=== PATIENT | female | born 1970 | race Caucasian/White ===

== ENCOUNTER 2018-10-06 10:40 | Day surgery (SDC) | payer OTHER ==
[~2018-10-06 10:40] MED LIST: BUPIV. HCL 0.25% (2.5MG/ML)/EPI. (1:200,000) PF 30 ML VIAL IJ ONE; DEXAMETHASONE SODIUM PHOSPHATE 10 MG/ML VIAL ONE; ENOXAPARIN SODIUM 40 MG/0.4 ML DISP.SYRIN SQ ONE; FAMOTIDINE 20 MG/2 ML VIAL IV ONE; LACTATED RINGERS 1,000 ML IV.SOLN IV ONE; LEVALBUTEROL NEB 1.25 MG/3 ML VIAL.NEB NEB ONE; LIDOCAINE HCL 1% PF 300MG/30ML VIAL ONE; LIDOCAINE HCL 2% PF 100MG/5ML VIAL IJ ONE; MIDAZOLAM HCL 2 MG/2 ML VIAL ONE; ONDANSETRON HCL/PF 4 MG/ 2ML VIAL ONE; PROPOFOL 200 MG/20 ML VIAL IV ONE; ROCURONIUM BROMIDE 10 MG/ML 5ML VIAL ONE; SCOPOLAMINE HYDROBROMIDE 1.5MG/72HR PATCH TD ONE; SEVOFLURANE 250 ML LIQUID IH ONE; SODIUM CHLORIDE IRRIG SOLUTION 3,000 ML IRRIG.SOLN IR ONE; SUGAMMADEX SODIUM 200 MG/2 ML VIAL IV ONE; ceFAZolin SODIUM 1 GM VIAL ONE
--- NOTE | 2018-10-06 14:34 | Operative Note ---
PREOPERATIVE DIAGNOSIS: 1. Morbid obesity. 2. Gastroesophageal reflux disease. 3. Hyperlipidemia. 4. Hypertension. POSTOPERATIVE DIAGNOSIS: 1. Morbid obesity. 2. Gastroesophageal reflux disease. 3. Hyperlipidemia. 4. Hypertension. PROCEDURES PERFORMED: 1. Laparoscopic vertical sleeve gastrectomy. 2. Upper gastrointestinal endoscopy. SURGEON: Tom Wolf M.D. INDICATIONS FOR PROCEDURE: Ms. Manda Green is a 47-year-old female who presented with features of morbid obesity. She was noted to have a weight of 308 pounds with a BMI of 56.3 with the above-listed comorbidities. The patient was advised laparoscopic vertical sleeve gastrectomy and possible hiatal hernia repair. The patient showed understanding and agreed to proceed. DESCRIPTION OF PROCEDURE: After explaining to the patient in detail and informed consent was obtained, the patient was identified in the preoperative holding area. The patient was transferred to the operating room and was placed in supine position. Sequential compressive devices were placed for DVT prophylaxis. Preoperative antibiotics were given. After induction of anesthesia, the abdomen was prepped and draped in a sterile fashion. Through a left upper quadrant 1-cm incision, and using Optiview technique, the peritoneal cavity was entered and pneumoperitoneum was created. Thereafter, under direct vision, another 5-mm trocar was placed in the left midabdomen and another 15-mm trocar was placed in the right midabdomen. Through a 1-cm incision in the right subcostal region, another 5-mm trocar was placed. Through a 1-cm incision in the epigastrium, a Taz retractor was introduced and the left lobe of the liver was retracted. On initial inspection, the patient was noted to have no evidence of hiatal hernia. I took down the gastroepiploic vessels using a LigaSure. This was continued superiorly. The short gastric vessels were taken down. The gastrophrenic ligament was divided and the Angle of His was mobilized. The posterior attachments of the stomach on the pancreas were released. Distally, the gastroepiploic vessels were taken down up to about 4 cm proximal to the pylorus. At this point, a #38 [place] Hurst Bougie was introduced into the stomach and was placed along the lesser curve. The stomach was then divided in a vertical fashion with multiple Endo CLARY Covidien Black Load Staplers. The first firing was directed outwards towards the greater curvature. Subsequent firings were directed towards the Angle of His to create a loose sleeve around the #38 [place]ian bougie. The bougie was then removed and an upper GI endoscopy was performed at this point. The scope was introduced into the esophagus and was gradually advanced into the stomach. The GE junction appeared normal. The sleeve size appeared normal. No evidence of any active bleeding was noted. The stomach was insufflated with air and irrigation of fluid along the staple line revealed no evidence of air leak. The stomach was then suctioned out and the scope was removed. Absolute hemostasis was ensured. Thorough saline irrigation was given. The Taz retractor was removed. Approximately 10 mL of a lidocaine- Marcaine mix was instilled under the left hemidiaphragm. The sleeve gastrectomy specimen was removed. The abdomen was then deflated. The incisions were closed with 4-0 Monocryl. Dermabond was applied. Approximately 10 mL of a lidocaine- Marcaine mix was injected into all the incisions. The patient was awakened from anesthesia and was transferred to the recovery room in stable condition. ESTIMATED BLOOD LOSS: Approximately 10 mL. CONDITION OF THE PATIENT: Stable. FLUIDS GIVEN: Per Anesthesia note. SPECIMEN(S) SENT: Sleeve gastrectomy specimen. COMPLICATIONS: None. ANESTHESIA: General. Tom Wolf M.D. TAE/jay (Please copy [facility] provider when applicable) Job #[id number] GENNY
== END 2018-10-06 14:44 | disposition other institution (70) ==
LOC: OPSURG 10:40
PROVIDERS: ATTEND Surgery
DX: K21.9 Gastro-esophageal reflux disease without esophagitis (principal); E66.01 Morbid (severe) obesity due to excess calories; I10 Essential (primary) hypertension; E78.2 Mixed hyperlipidemia
CPT/HCPCS: 43235; 43775; 88305; 93005; A9270; J0690; J1650; J2001; J2250; J2405; J2704; J7120; J7614; 99222; 99231; 99238

== ENCOUNTER 2018-10-06 14:45 | Inpatient (IN) | payer OTHER ==
[2018-10-06 15:06] VITALS: BMI 56.8
[2018-10-06] MEDS ORDERED: LEVALBUTEROL NEB 1.25 MG/3 ML VIAL.NEB IH PRN (15:15)
[2018-10-06] MEDS ORDERED: MORPHINE SULFATE 10MG/0.5ML ORAL SOLN UD CUP PO PRN (15:15)
[2018-10-06] MEDS ORDERED: PROMETHAZINE HCL 25 MG in 0.9 % SODIUM CHLORIDE 50 ML IV PRN (15:15)
[2018-10-06] MEDS ORDERED: MORPHINE SULFATE 4 MG/ML VIAL IVP PRN (15:15)
[2018-10-06] MEDS ORDERED: clonazePAM 0.5 MG TABLET PO PRN (15:30)
[2018-10-06] MEDS: 0.9 % SODIUM CHLORIDE 1,000 ML IV SCH (15:44)
--- NOTE | 2018-10-06 15:44 | History and Physical Report ---
History of Present Illnes - History of Present Illness Reason for Visit: S/P LSG History of Present Illness: Patient is a 47-year-old female who has tried multiple diets and exercise programs with no success. She states that she has been overweight since she was a young adult and worsened after having children. It was decided to go ahead with LSG. Procedure went well- patient will be admitted and monitored s/p surgical intervention. Patient has been on a liquid diet prior to surgery so she is a risk of dehydration s/p surgery. She will be admitted for IV hydration to help hydrate patient until she is able to tolerate a sufficient oral intake, will treat pain with IV medication until patient is able to tolerate oral meds, IV antiemetics to help reduce episodes of nausea and/or vomiting. Patient will be monitored closely using telemetry. Patient has redness and irritation to groin area/pannus- she states that she struggles with "yeast infections" due to obesity. - Past Medical History Cardiac: Hyperlipidemia Pulmonary: Sleep Apnea [employer]TELLIGENCE SPECIALIST: Migraine Gastrointestinal: GERD Psych: Anxiety, Bipolar, Other (PTSD, OCD) Rheumatologic: Fibromyalgia Grav: 3 Para: 2 Ab: 1 - Past Surgical History Past Surgical History: , Other (foot surgery), Tubal Ligation - Past Family History Mother Family History: CAD, Father Family History: Other (Never knew her father) - Past Social History Smoke: 1 pack per day Alcohol: Rare Drugs: Marijuana Lives: With Family Domestic Violence: Negative - Health Maintenance Health Maintenance: Cholesterol, Influenza Vaccine Influenza Vaccine: Current for this Influenza Season Pneumonia Vaccine: No Resuscitation Status: Resusciation Status Resuscitation Status Full Code Review of Systems - Review of Systems Constitutional: negative: Fever, Chills Eyes: negative: conjunctivae inflammation, eyelid inflammation ENT: negative: Ear Pain, Nose Pain, Throat Pain Respiratory: negative: Cough, Shortness of Breath Cardiovascular: Chest Pain (reproducible- ? air). negative: Palpitations Gastrointestinal: Nausea, Abdominal Pain. negative: Vomiting Genitourinary: negative: Dysuria Musculoskeletal: negative: Back Pain Skin: Rash (below pannus), Other (Incision site x 5) Neurological: negative: Weakness - Medications/Allergies Allergies/Adverse Reactions: Allergies Allergy/AdvReac Type Severity Reaction Status Date / Time No Known Allergies Allergy Verified 10/06/18 14:21 Current Inpatient Medications: Current Inpatient Medications Hydrocodone Bitart/Acetaminophen (Hycet 7.5-325mg/15 Ml Ud Cup) 15 ml PO Q4 PRN PRN Reason: PAIN 5-7 Stop: 10/10/18 15:14 Cefazolin Sodium/Dextrose (Ancef 1 Gm/50 Ml-Dextrose) 1 gm IV Q8H [facility] Stop: 10/07/18 05:01 Clonazepam (Klonopin) 0.5 mg PO TID PRN PRN Reason: Anxiety Enoxaparin Sodium (Lovenox) 40 mg SQ DAILY [facility] Stop: 10/21/18 08:59 Famotidine (Pepcid) 20 mg IVP BID [facility] Stop: 10/10/18 20:59 Sodium Chloride (Normal Saline) 1,000 mls @ 150 mls/hr IV Q8H [facility] Promethazine HCl 25 mg/ Sodium (Chloride) 51 mls @ 200 mls/hr IV Q6 PRN PRN Reason: Nausea / Vomiting Stop: 10/10/18 15:14 Ketorolac Tromethamine (Toradol) 30 mg IV Q6H PRN PRN Reason: For Mild Pain Stop: 10/10/18 15:14 Levalbuterol HCl (Xopenex Neb) 1.25 mg IH Q4H PRN PRN Reason: Wheezing Morphine Sulfate () 4 mg IVP Q2 PRN PRN Reason: PAIN 8-10 Stop: 10/10/18 15:14 Morphine Sulfate (Roxanol) 10 mg PO Q4 PRN PRN Reason: PAIN 8-10 Stop: 10/10/18 15:14 Nystatin (Nystop) 1 appl TP QID [facility] Stop: 10/16/18 16:59 Ondansetron HCl (Zofran) 4 mg IVP Q6H PRN PRN Reason: Nausea / Vomiting Stop: 10/10/18 15:14 Exam - Exam Vital Signs: Vital Signs (72 hours) 10/06/18 10/06/18 10/06/18 15:00 15:02 15:23 Temperature 97.2 F L 97.2 F L 97.3 F L Pulse Rate [ 91 H 91 H 92 H Right Pulse ox] Respiratory 18 18 18 Rate Blood Pressure 139/74 139/74 150/88 [Right Arm] O2 Sat by Pulse 92 92 93 Oximetry General: Alert, Oriented to Person, Oriented to Place, Oriented to Time, Cooperative, Mild distress, Morbidly Obese HEENT: PERRLA, Nose Mucous membr. moist/[place] Neck: Normal Range of Motion Carotids: no bruit Lungs: Clear to auscultation, Normal air movement, Speaks full Sentences, Chest Wall Tenderness Cardiovascular: Regular rate, Normal S1, Normal S2 Peripheral Edema: none Peripheral Pulses: 2+ Abdomen: Soft, Decreased Bowel Sounds Integumentary: Warm, Dry, Pale, Rash ("yeast rash" below pannus and groin area), Other (incision sites x 5 intact) Extremities: No edema, Normal pulses Neurological: Normal speech, Strength Equal Bilat, Normal tone, Sensation intact Psych/Mental Status: Mental status NL, Mood NL, Appropriate Affect, Intact Judgment Assessment/Plan - Assessment/Plan (1) Status post gastric surgery Status: Acute Current Visit: Yes Plan: Plan to admit for IV hydration, IV pain meds, and IV antiemetics. Lovenox and SCDs to help prevent DVTs, IS and frequent ambulation will be implemented. Start ice chips and advance diet as tolerated. (2) Morbid obesity due to excess calories Status: Acute Current Visit: Yes Plan: Patient is s/p gastric sleeve. We will assist patient with implementing gastric sleeve diet protocol starting with ice chips and clear liquids and advancing as tolerated once nausea is controlled and patient is able to tolerate PO (3) YAMILE (obstructive sleep apnea) Status: Acute Current Visit: Yes Plan: Will use CPAP (4) GERD (gastroesophageal reflux disease) Status: Acute Current Visit: Yes Plan: Will give Pepcid IV BID (5) Hyperlipidemia Status: Acute Current Visit: Yes Plan: Will hold medication at this time (6) Ronel infection Status: Acute Current Visit: Yes Plan: Rash to pannus and groin- will order Nystatin powder QID (7) Anxiety Status: Acute Current Visit: Yes Plan: Will continue with clonazepam VTE Assessment - RISK FACTOR SCORE VTE RISK FACTOR SCORES: AGE 40-60 YEARS, OBESITY, SMOKER, MAJOR SURGERY/ANESTHESIA TIME > 1 HOUR - RISK VTE HIGH RISK: SCORE OF 3-4 (RISK PROXIMAL DVT 4-8%) PROPHYLAXIS NEEDED (Lovenox daily, frequent ambulation, IS, SCDs while in bed)
[2018-10-06] MEDS: NYSTATIN 15 GM TOPICAL POWDER BOTTLE TP SCH ×2 (16:46→21:22)
[2018-10-06] MEDS: KETOROLAC TROMETHAMINE 30 MG/1ML VIAL IV PRN (21:21)
[2018-10-06] MEDS: ONDANSETRON HCL/PF 4 MG/ 2ML VIAL IVP PRN (21:21)
[2018-10-06] MEDS: FAMOTIDINE 20 MG/2 ML VIAL IVP SCH (21:22)
[2018-10-06] MEDS: ceFAZolin SODIUM 1 GM/50 ML PIGGYBACK IV SCH (23:56)
[2018-10-07] MEDS: HYDROcodone-ACETAMIN 7.5-325/15ML SOLN UD CUP PO PRN ×2 (02:40→18:42)
[2018-10-07] MEDS: 0.9 % SODIUM CHLORIDE 1,000 ML IV SCH ×3 (05:31→12:47)
[2018-10-07] MEDS: ceFAZolin SODIUM 1 GM/50 ML PIGGYBACK IV SCH (05:32)
[2018-10-07 06:58] LABS: MEAN CORPUSCULAR HEMOGLOBIN 29.3 pg (28.0-34.0)
[2018-10-07] MEDS: NYSTATIN 15 GM TOPICAL POWDER BOTTLE TP SCH ×5 (07:04→22:52)
[2018-10-07 07:05] LABS: eGFR (Non-African) > 60
--- NOTE | 2018-10-07 07:06 | Inpatient Progress Note ---
Subjective - Required Recertification Statement I anticipate X number of days because-include discharge plan: 1 - Review of Systems Events since last encounter: Patient states that she had a "decent" night. She had some nausea with a couple of episodes of dry heaves- she was encouraged to sip her drinks and wait in between drinks- she states that her pain is tolerable and pain medications are working. She has been up walking in the perez, wearing SCDs while in bed, and using Incentive Spirometry- incision sites are dry and intact. General: Denies: Fatigue HEENT: Denies: Head Aches, Dysphasia Pulmonary: Denies: Dyspnea Cardiovascular: Denies: Chest Pain, Light Headedness Gastrointestinal: Nausea, Vomiting (dry heaves), Abdominal Pain (moderate) Genitourinary: Denies: Dysuria Musculoskeletal: Denies: Back Pain Neurological: Denies: Weakness Objective - Exam Vitals and I&O: Vital Signs Temp 98.7 F 10/07/18 06:00 Pulse 90 10/07/18 06:00 Resp 18 10/07/18 06:00 BP 126/68 10/07/18 06:00 Pulse Ox 94 10/07/18 06:00 Intake & Output 10/06/18 10/06/18 10/07/18 11:59 23:59 11:59 Intake Total 450 1530 Output Total 400 600 Balance 50 930 Weight 136.531 kg Intake: IV 450 1500 Left Hand 450 1500 Oral 0 30 Output: Urine 400 600 Other: Voiding Method Toilet Toilet # Voids 0 1 # Bowel Movements 0 General: Alert, Oriented to Person, Oriented to Place, Oriented to Time, Cooperative, Mild distress, Morbidly Obese HEENT: PERRLA, Mouth Mucous membr. moist/[place], Nose Mucous membr. moist/[place] Neck: Supple, +2 carotid pulse wo bruit Lungs: Clear to auscultation, Normal air movement, Speaks full Sentences Cardiovascular: Regular rate, Normal S1, Normal S2 Abdomen: Normal bowel sounds, Soft Extremities: No edema, Normal pulses, No tenderness/swelling Skin: Normal, [place], Warm, Dry, Other (incision site x5 intact) Neurological: Normal gait (pt has been up walking), Normal speech, Strength Equal Bilat, Normal tone, Sensation intact Psych/Mental Status: Mental status NL, Mood NL, Appropriate Affect, Intact Judgment - Results Results: Laboratory Results WBC 11.50 K/ul (4.00-12.00) 10/07/18 06:00 RBC 4.66 M/ul (3.90-5.20) 10/07/18 06:00 Hgb 13.7 g/dL (11.5-16.0) 10/07/18 06:00 Hct 40.9 % (34.5-46.5) 10/07/18 06:00 MCV 88.0 fl (80.0-100.0) 10/07/18 06:00 MCH 29.3 pg (28.0-34.0) 10/07/18 06:00 MCHC 33.4 g/dL (30.0-36.0) 10/07/18 06:00 RDW 14.1 % (11.3-14.3) 10/07/18 06:00 Plt Count 215 K/mm3 (130-400) 10/07/18 06:00 Sodium 136 mmol/L (137-145) L 10/07/18 06:00 Potassium 3.8 mmol/L (3.5-5.1) 10/07/18 06:00 Chloride 100 mmol/L (98-107) 10/07/18 06:00 Carbon Dioxide 30 mmol/L (22-30) 10/07/18 06:00 BUN 33 mg/dL (7-17) H 10/07/18 06:00 Creatinine 1.00 mg/dL (0.52-1.04) 10/07/18 06:00 Estimated Creat Clear 172 10/07/18 06:00 Est GFR ( Amer) > 60 (60-) 10/07/18 06:00 Est GFR (Non-Af Amer) > 60 (60-) 10/07/18 06:00 Glucose 111 mg/dL (74-106) H 10/07/18 06:00 Calcium 8.8 mg/dL (8.4-10.2) 10/07/18 06:00 Total Bilirubin 0.4 mg/dL (0.2-1.3) 10/07/18 06:00 AST 46 U/L (15-46) 10/07/18 06:00 ALT 40 U/L (0-35) H 10/07/18 06:00 Alkaline Phosphatase 61 U/L (38-126) 10/07/18 06:00 Total Protein 7.4 g/dL (6.3-8.2) 10/07/18 06:00 Albumin 4.2 g/dL (3.5-5.0) 10/07/18 06:00 Assessment/Plan - Assessment/Plan (1) Status post gastric surgery Status: Acute Current Visit: Yes Plan: Will continue to have patient ambulate frequently in the perez, wear SCDs while in bed, frequent use of incentive spirometer, continue IVF until patient can take in sufficient oral intake- pt is tolerating po meds (2) Morbid obesity due to excess calories Status: Acute Current Visit: Yes Plan: Will continue with gastric sleeve diet protocol- clear liquids (3) YAMILE (obstructive sleep apnea) Status: Acute Current Visit: Yes Plan: Doing well= will continue with CPAP (4) GERD (gastroesophageal reflux disease) Status: Acute Current Visit: Yes Qualifiers: Esophagitis presence: esophagitis presence not specified Qualified Code(s): K21.9 - Gastro-esophageal reflux disease without esophagitis Plan: Will continue with Pepcid IV BID (5) Hyperlipidemia Status: Acute Current Visit: Yes Plan: Will continue to hold and monitor (6) Ronel infection Status: Acute Current Visit: Yes Plan: Will continue with Nystatin powder 4 times a day (7) Anxiety Status: Acute Current Visit: Yes Plan: Stable- will continue to monitor
[2018-10-07 07:24] LABS: ANISOCYTOSIS 1+ (NEGATIVE); BASOPHILS % 1 % (0-2); MONOCYTES % 5 % (0-11); SEGMENTED NEUTROPHILS % 80 % (39-79)
[2018-10-07] MEDS: ENOXAPARIN SODIUM 40 MG/0.4 ML DISP.SYRIN SQ SCH (08:44)
[2018-10-07] MEDS: FAMOTIDINE 20 MG/2 ML VIAL IVP SCH ×2 (08:46→22:52)
[2018-10-07] MEDS: ONDANSETRON HCL/PF 4 MG/ 2ML VIAL IVP PRN ×2 (09:10→22:56)
[2018-10-07] MEDS: KETOROLAC TROMETHAMINE 30 MG/1ML VIAL IV PRN ×2 (09:12→22:55)
[2018-10-08 05:59] LABS: eGFR (Non-African) > 60
--- NOTE | 2018-10-08 06:10 | Discharge Summary ---
Discharge Summary - Discharge [facility] Admission Date: 10/06/18 Discharge Date: 10/08/18 History of Present Illness: Patient is a 47-year-old female who has tried multiple diets and exercise programs with no success. She states that she has been overweight since she was a young adult and worsened after having children. It was decided to go ahead with LSG. Procedure went well- patient will be admitted and monitored s/p surgical intervention. Patient has been on a liquid diet prior to surgery so she is a risk of dehydration s/p surgery. She will be admitted for IV hydration to help hydrate patient until she is able to tolerate a sufficient oral intake, will treat pain with IV medication until patient is able to tolerate oral meds, IV antiemetics to help reduce episodes of nausea and/or vomiting. Patient will be monitored closely using telemetry. Patient has redness and irritation to groin area/pannus- she states that she struggles with "yeast infections" due to obesity. Condition at Discharge: Stable Home Medications: Ambulatory Orders Medication Instructions Recorded Acyclovir [Zovirax] 1 tab PO DAILY 10/06/18 Baclofen 10 mg PO TID PRN 10/06/18 Carbidopa/Levodopa 1 each PO HS 10/06/18 [Carbidopa-Levodopa 10-100 Tab] Clonazepam 0.5 mg PO TID PRN 10/06/18 Fluticasone Propionate [Flonase] 2 sprays NS DAILY PRN 10/06/18 Lisinopril 20 mg PO DAILY 10/06/18 Meloxicam 1 tab PO DAILY 10/06/18 Omeprazole 20 mg PO 0700 10/06/18 Pregabalin [Lyrica] 100 mg PO BID 10/06/18 Quetiapine Fumarate [Seroquel] 300 mg PO HS 10/06/18 Sertraline HCl [Zoloft] 100 mg PO BID 10/06/18 Simvastatin 40 mg PO HS 10/06/18 Sumatriptan Succinate [Imitrex] 100 mg PO DAILY PRN 10/06/18 Triamterene/Hydrochlorothiazid 1 each PO DAILY 10/06/18 [Triamterene-Hctz 75-50 mg Tab] oxyCODONE HCL/ACETAMINOPHEN 1 tab PO Q6 PRN 10/06/18 [Percocet 5-325 mg Tablet] Consultations this Visit: None Procedures this Visit: Other Allergies/Adverse Reactions: Allergies Allergy/AdvReac Type Severity Reaction Status Date / Time No Known Allergies Allergy Verified 10/06/18 14:21 Discharge Summary: Patient is a 47-year-old female that underwent the gastric sleeve procedure and has done well. She has been very cooperative with her care by ambulating frequently, using her incentive spirometer, and wearing her SCDs while in bed. She has been compliant with her diet during hospitalization. She is having minimal discomfort at this time and minimal nausea- she has is passing gas and belching. She is aware of discharge instructions and what she can and cannot do post surgical- she is aware of the strict diet she must follow to decrease discomfort and have success after procedure. She has family support and [employer] will be taking her home- medications written by surgeon given to patient. She feels ready to go home. Hospital Course: Patient received pain medications, antiemetics, and IVF and was transitioned to oral. She has been up ambulating and using incentive spirometer. - Final Diagnosis (1) Status post gastric surgery Problems: Incision without redness or drainage, positive bowel sounds, minimal discomfort, belching and flatus, no extremity pain or edema Right or Left: Right (2) Morbid obesity due to excess calories Problems: Continue with bariatric sleeve diet- clear liquids today- full liquid starting tomorrow Right or Left: Right (3) YAMILE (obstructive sleep apnea) Problems: Stable with CPAP Right or Left: Right (4) GERD (gastroesophageal reflux disease) Problems: stable Right or Left: Right (5) Hyperlipidemia Problems: stable Right or Left: Right (6) Ronel infection Problems: Improved with Nystatin powder Right or Left: Right (7) Anxiety Problems: stable Right or Left: Right
[2018-10-08 09:06] VITALS: BP 128/75
[2018-10-08] MEDS: NYSTATIN 15 GM TOPICAL POWDER BOTTLE TP SCH (09:27)
[2018-10-08] MEDS: KETOROLAC TROMETHAMINE 30 MG/1ML VIAL IV PRN (09:28)
[2018-10-08] MEDS: FAMOTIDINE 20 MG/2 ML VIAL IVP SCH (09:28)
[2018-10-08] MEDS: ENOXAPARIN SODIUM 40 MG/0.4 ML DISP.SYRIN SQ SCH (09:28)
== END 2018-10-08 10:20 | disposition home or self-care (01) | DRG 641 ==
LOC: SOUTH 14:45
PROVIDERS: ADMIT Nurse Practitioner Family; ATTEND Nurse Practitioner Family
DX: E66.01 Morbid (severe) obesity due to excess calories (principal); B37.89 Other sites of candidiasis; G89.18 Other acute postprocedural pain; R11.0 Nausea; G47.33 Obstructive sleep apnea (adult) (pediatric); F41.9 Anxiety disorder, unspecified
CPT/HCPCS: 80048; 80053; 85025; 93005; 97116; 97161; 97165; 97530; A9270; J1650; J1885; J2270; J2405; J2550; J7030; 99222; 99231; 99238